=== PATIENT | female | born 1975 | race Caucasian/White ===

== ENCOUNTER 2016-09-04 10:30 | Day surgery (SDC) | payer OTHER ==
[~2016-09-04 10:30] MED LIST: Lactated Ringers 1,000 ML IV SCH; Midazolam 1 MG/ML 2 ML SDV ONE; Propofol 200 MG/20 ML SDV ONE; Sodium Chloride 0.9% 10 ML Syringe FLUSH PRN; Sodium Chloride 0.9% 2.5 ML Syringe FLUSH PRN; fentaNYL 100 MCG/2 ML SDV ONE
--- NOTE | 2016-09-04 12:41 | PCM.PREANE ---
Preanesthetic Assessment - Anesthesia/Transfusion/Family Hx Anesthesia History: Prior Anesthesia Without Reaction Family History of Anesthesia Reaction: No Transfusion History: No Prior Transfusion(s) Intubation History: Unknown - Review of Systems General: No Symptoms Pulmonary: No Symptoms Cardiovascular: No Symptoms Gastrointestinal: No symptoms Neurological: No Symptoms Other: Reports: None - Physical Assessment O2 Sat by Pulse Oximetry: 98 Respiratory Rate: 16 Vital Signs: Last Vital Signs Temp 97.2 F 09/04/16 12:02 Pulse 68 09/04/16 12:02 Resp 16 09/04/16 12:02 BP 162/99 H 09/04/16 12:02 Pulse Ox 98 09/04/16 12:02 Height: 5 ft 7 in Weight: 239 lb ASA Class: 3 Mental Status: Alert & Oriented x3 Airway Class: Mallampati = 3 Dentition: Reports: Normal Dentition Thyro-Mental Finger Breadths: 3 Mouth Opening Finger Breadths: 3 ROM/Head Extension: Full Lungs: Clear to auscultation, Normal respiratory effort Cardiovascular: Regular Rate, Regular Rhythm, Other (pacemaker) - Allergies Allergies/Adverse Reactions: Allergies Allergy/AdvReac Type Severity Reaction Status Date / Time gluten Allergy Stomach Verified 09/01/16 11:25 Upset/body aches - Blood Blood Available: No Product(s) Available: None - Anesthesia Plan Free Text/Narrative:: MAC - Acknowledgements Anesthesia Type Planned: MAC Pt an Appropriate Candidate for the Planned Anesthesia: Yes Alternatives and Risks of Anesthesia Discussed w Pt/Guardian: Yes Pt/Guardian Understands and Agrees with Anesthesia Plan: Yes PreAnesthesia Questionnaire - Past Health History Medical/Surgical History: Denies Medical/Surgical History Cardiovascular History: Reports: Pacemaker Other Cardiovascular History: pacemaker - 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 Genitourinary History: Reports: None 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: Neurological History: Reports: Seizure (febrile up until age 7) Endocrine/Metabolic History: Reports: Obesity/BMI 30+ Hematologic History: Reports: Anemia, Other (see below) Other Hematologic History: anemia with pregnancies - Past Surgical History Head Surgeries/Procedures: Reports: None HEENT Surgical History: Reports: Adenoidectomy, Tonsillectomy GI Surgical History: Reports: Cholecystectomy Female Surgical History: Reports: section, Hysterectomy Other Female Surgeries/Procedures: c/section x2, hysterectomy with salpingectomy - SUBSTANCE USE Smoking Status *Q: Never Smoker Tobacco Use Within Last Twelve Months: No Days Per Week of Alcohol Use: 0 Recreational Drug Use History: No - HOME MEDS Home Medications: Home Meds Polyethylene Glycol 3350 [Miralax] 1 capful PO ASDIRECTED PRN 09/01/16 [History] - CURRENT (IN HOUSE) MEDS Current Meds: Current Medications Lactated Ringer's (Ringers, Lactated) 1,000 mls @ 125 mls/hr IV ASDIRECTED CASANDRA Last Admin: 09/04/16 12:04 Dose: 125 mls/hr Sodium Chloride (Saline Flush) 10 ml FLUSH ASDIRECTED PRN PRN Reason: Keep Vein Open Sodium Chloride (Saline Flush) 2.5 ml FLUSH ASDIRECTED PRN PRN Reason: Keep Vein Open Discontinued Medications Fentanyl (Sublimaze) Confirm Administered Dose 100 mcg .ROUTE .STK-MED ONE Stop: 09/04/16 07:01 Midazolam HCl (Versed 1 Mg/Ml) Confirm Administered Dose 2 mg .ROUTE .STK-MED ONE Stop: 09/04/16 07:01 Propofol (Diprivan 20 Ml) Confirm Administered Dose 400 mg .ROUTE .STK-MED ONE Stop: 09/04/16 07:01 Preanesthetic Assessment - ANESTHESIA/TRANSFUSION/FAMILY HX Anesthesia/Transfusion History: No Prior Transfusion(s), Prior Anesthesia Family History of Anesthesia Reaction: No Intubation History: Unknown - PHYSICAL ASSESSMENT O2 Sat by Pulse Oximetry: 98 RR: 16 Vital Signs: Last Vital Signs Temp 97.2 F 09/04/16 12:02 Pulse 68 09/04/16 12:02 Resp 16 09/04/16 12:02 BP 162/99 H 09/04/16 12:02 Pulse Ox 98 09/04/16 12:02 Height: 5 ft 7 in Weight: 239 lb - ALLERGIES Allergies/Adverse Reactions: Allergies Allergy/AdvReac Type Severity Reaction Status Date / Time gluten Allergy Stomach Verified 09/01/16 11:25 Upset/body aches
--- NOTE | 2016-09-04 13:27 | PCM.OPNOTE ---
- General Post-Op/Procedure Note Date of Surgery/Procedure: 09/04/16 Operative Procedure(s): Diagnostic colonoscopy Findings: 1-2 mm pedunculated polyp in rectum Pre Op Diagnosis: Constipation Post-Op Diagnosis: rectal polyp Anesthesia Technique: MAC Primary Surgeon: Renu Lynn Condition: Good
--- NOTE | 2016-09-04 13:38 | PCM48HPAN ---
Post Anesthesia Note - EVALUATION WITHIN 48HRS OF ANESTHETIC Vital Signs in Normal Range: Yes Patient Participated in Evaluation: Yes Respiratory Function Stable: Yes Airway Patent: Yes Cardiovascular Function Stable: Yes Hydration Status Stable: Yes Pain Control Satisfactory: Yes Nausea and Vomiting Control Satisfactory: Yes Mental Status Recovered: Yes
[2016-09-04 13:45] VITALS: BP 110/61
--- NOTE | 2016-09-04 21:28 | OR ---
SURGEON: RENU LYNN MD DATE OF PROCEDURE: PREOPERATIVE DIAGNOSIS: Constipation. POSTOPERATIVE DIAGNOSIS: Rectal polyp. PROCEDURE PERFORMED: Diagnostic colonoscopy. ENDOSCOPIST: Dr. Renu Lynn. INSTRUMENT USED: Olympus colonoscope. ANESTHESIA: MAC. EXTENT OF EXAM: To the cecum. PREPARATION: Good. LIMITATIONS: None. INDICATIONS FOR EXAMINATION: The patient is a 41-year-old female, who presents with chronic constipation. Lately, the constipation has become more severe. The patient currently takes daily MiraLax with good relief of her symptoms. The patient and I discussed the need for diagnostic colonoscopy. We discussed the procedure as well as expected perioperative course. We discussed the risks, including bleeding, infection, or damage to surrounding structures. The patient verbalized understanding and wished to proceed. PROCEDURE IN DETAIL: The patient was brought into the endoscopy suite and placed in left lateral decubitus position. A time-out was completed verifying the patient's name, age, date of , allergies, and procedure to be performed. Monitored anesthesia care was induced and continuous oxygen was provided via face mask throughout the procedure. After adequate sedation was achieved, a digital rectal exam was performed. This examination was within normal limits. A well lubricated colonoscope was then inserted in the rectum and advanced under direct visualization to the level of the cecum. The cecum was identified by both visual and anatomic landmarks. A photograph was taken of the cecal cap as well as with the scope retroflexed within the cecum. The scope was then fully withdrawn while examining the color, texture, anatomy, and integrity of the mucosa from the cecum to the anal canal. A 1 to 2 mm pedunculated polyp was noted within the rectum. This was removed using a cold biopsy forceps. It was labeled as rectal polyp and sent to pathology. The scope was then retroflexed within the rectum to visualize the anal canal opening. This all appeared normal and a photograph was taken. The scope was then straightened out and removed from the patient. The patient was then transferred to the recovery area in stable condition. Cecum to anus time was 16 minutes. ENDOSCOPIC DIAGNOSIS: Rectal polyp. RECOMMENDATION: Follow up in clinic in 2 weeks. DEBORAH MOONEY /[id number] SHAY
== END 2016-09-04 13:55 | disposition home or self-care (01) ==
LOC: MW.SDS 10:30
PROVIDERS: ATTEND Surgery
PROC: 0DBP8ZZ Excision of Rectum, Via Natural or Artificial Opening Endoscopic (ICD-10-PCS; principal; 2016-09-04)
DX: D12.8 Benign neoplasm of rectum (principal); K59.09 Other constipation; K90.0 Celiac disease; I10 Essential (primary) hypertension; E66.9 Obesity, unspecified; Z90.49 Acquired absence of other specified parts of digestive tract; Z90.710 Acquired absence of both cervix and uterus; Z90.79 Acquired absence of other genital organ(s); Z90.89 Acquired absence of other organs; Z98.890 Other specified postprocedural states; Z68.37 Body mass index [BMI] 37.0-37.9, adult
CPT/HCPCS: 45380; 88305; J2250; J3010; J7120; 00810; J2704

== ENCOUNTER 2016-09-23 04:34 | Emergency (ER) | payer OTHER ==
[2016-09-23] MEDS ORDERED: Magnesium Citrate Solution 296 ML Bottle PO ONE (04:56)
--- NOTE | 2016-09-23 05:13 | EDM.PDOC ---
ED HISTORY OF PRESENT ILLNESS - General Chief Complaint: Chest Pain Stated Complaint: CHEST TIGHTNESS Time Seen by Provider: 09/23/16 04:50 - History of Present Illness INITIAL COMMENTS - FREE TEXT/NARRATIVE: Initially she presented to the emergency department complaining of left chest pain. However on further questioning she states that her main problem is constipation. She had a small hard stool yesterday. Should it has been over one week since she has had a normal "good" bowel movement she finds that when she strains to have a bowel movement it hurts in the area of her pacemaker placement. Her pacemaker was placed because of a bradycardia. She denies any known history of coronary artery disease or congestive heart failure . 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: Musculoskeletal History: Reports: None Neurological History: Reports: Seizure Psychiatric History: Reports: None Endocrine/Metabolic History: Reports: Obesity/BMI 30+ Hematologic History: Reports: Anemia, Other (see below) Other Hematologic History: anemia with pregnancies Dermatologic History: Reports: None - Infectious Disease History Infectious Disease History: Reports: Chicken pox - Past Surgical History Head Surgeries/Procedures: Reports: None HEENT Surgical History: Reports: Adenoidectomy, Tonsillectomy GI Surgical History: Reports: Cholecystectomy Female Surgical History: Reports: section, Hysterectomy Other Female Surgeries/Procedures: c/section x2, hysterectomy with salpingectomy Social & Family History - Family History Family Medical History: Noncontributory - Tobacco Use Smoking Status *Q: Never Smoker - Alcohol Use Days Per Week of Alcohol Use: 0 - Recreational Drug Use Recreational Drug Use: No Drug Use in Last 12 Months: No ED ROS GENERAL - Review of Systems Review Of Systems: See Below Constitutional: Denies: fever, chills Respiratory: Denies: Shortness of Breath, Cough, Sputum Cardiovascular: Reports: Chest pain (as per history of present illness) GI/Abdominal: Denies: Black stool, Bloody stool, Vomiting ED EXAM, GENERAL - Physical Exam Exam: See Below Free Text/Narrative:: She is alert no acute distress lungs clear to auscultation. Heart regular rate and rhythm without murmur. Abdomen obese normal to decreased bowel sounds soft and nontender. No facial droop. Will lead electrocardiogram shows sinus rhythm. Troponin level is normal. General Appearance: alert, no apparent distress Course - Vital Signs Last Recorded V/S: Last Vital Signs Temp 97.0 F 09/23/16 04:39 Pulse 81 09/23/16 04:39 Resp 18 09/23/16 04:39 BP 217/98 H 09/23/16 04:39 Pulse Ox 98 09/23/16 04:39 - Orders/Labs/Meds Orders: Active Orders 24 hr Category Date Time Status EKG Documentation Completion [RC] STAT Care 09/23/16 04:53 Active Labs: Laboratory Tests 09/23/16 Range/Units 04:45 Troponin I < 0.10 (0.0-0.29) NG/ML Meds: Medications Discontinued Medications Generic Name Dose Route Start Last Admin Trade Name Freq PRN Reason Stop Dose Admin Magnesium Citrate 296 ml 09/23/16 04:56 09/23/16 05:05 Citrate Of Magnesia PO 09/23/16 04:57 296 ml ONETIME ONE Administration Departure - Departure Time of Disposition: 05:15 Disposition: Home, Self-Care 01 Condition: good Clinical Impression: Constipation Forms: ED Department Discharge Additional Instructions: Magnesium citrate one bottle given. We discussed ways to prevent constipation the future. Followup if no bowel movement in the next 6 hours. - My Orders Last 24 Hours: My Active Orders 09/23/16 04:53 EKG Documentation Completion [RC] STAT - Assessment/Plan Last 24 Hours: My Active Orders 09/23/16 04:53 EKG Documentation Completion [RC] STAT
[2016-09-23 05:30] VITALS: BP 166/84
== END 2016-09-23 05:33 | disposition home or self-care (01) ==
LOC: MW.ED 04:34
DX: K59.00 Constipation, unspecified (principal); E66.9 Obesity, unspecified; Z68.35 Body mass index [BMI] 35.0-35.9, adult; Z90.49 Acquired absence of other specified parts of digestive tract; Z90.710 Acquired absence of both cervix and uterus; Z90.721 Acquired absence of ovaries, unilateral; Z95.0 Presence of cardiac pacemaker; Z98.890 Other specified postprocedural states; Z91.018 Allergy to other foods
CPT/HCPCS: 84484; 93005; 99285; A9270; 99282